=== PATIENT | male | born 1985 | race Caucasian/White ===

== ENCOUNTER 2018-09-21 17:49 | Emergency (ER) | payer MEDICAID, OTHER ==
[2018-09-21] MEDS: IBUPROFEN 800 MG TAB PO (19:39)
== END 2018-09-21 20:44 | disposition home or self-care (01) ==
LOC: FTE 17:49
DX: M79.661 Pain in right lower leg (principal)
CPT/HCPCS: 73590; 99283-25

== ENCOUNTER 2019-01-17 16:30 | Emergency (ER) | payer MEDICAID ==
[2019-01-17] MEDS: KETOROLAC 30 MG INJ IM (21:15)
[2019-01-17] MEDS: HYDROCODONE/APAP (10/325) TAB PO (21:16)
== END 2019-01-17 22:19 | disposition home or self-care (01) ==
LOC: FTE 16:30
DX: S63.501A Unspecified sprain of right wrist, initial encounter (principal); W22.8XXA Striking against or struck by other objects, initial encounter; Y92.9 Unspecified place or not applicable
CPT/HCPCS: 73110; 73110-RT; 73130-RT; 96372; 99284-25